=== PATIENT | female | born 1980 ===

== ENCOUNTER 2017-11-12 21:03 | Emergency (ER) | payer SELFPAY ==
[2017-11-12 21:14] VITALS: BP 127/80; PULSE 64; RESP 19; TEMP 98.3; O2SAT 98
--- NOTE | 2017-11-12 21:34 | ED PDOC ---
HPI: Female Pain Time Seen by Provider: 11/12/17 21:15 Chief Complaint (Nursing): Female Genitourinary Chief Complaint (Provider): Female Genitourinary History Per: Patient, [employer] ([employer]) History/Exam Limitations: no limitations Onset/Duration Of Symptoms: Days (x3 weeks) Current Symptoms Are (Timing): Still Present Additional Complaint(s): 37 year old female presents to the ED for evaluation of dysuria. Patient states that three weeks ago, she was diagnosed with a UTI, and prescribed macrobid for one week, which she finished and provided good relief of the dysuria. The following week however, symptoms returned, so she took an over the counter medication which resolved her symptoms after three days. Today, however, her dysuria returned worse than previously. Otherwise, denies back pain, abdominal pain, nausea, vomiting, fever, and hematuria PMD: none provided Past Medical History Reviewed: Historical Data, Nursing Documentation, Vital Signs Vital Signs: Last Vital Signs Temp 98.3 F 11/12/17 21:07 Pulse 64 11/12/17 21:07 Resp 19 11/12/17 21:07 BP 127/80 11/12/17 21:07 Pulse Ox 98 11/12/17 21:07 - Medical History PMH: No Chronic Diseases - Surgical History Surgical History: No Surg Hx - Family History Family History: States: Unknown Family Hx - Home Medications Home Medications: Ambulatory Orders Medication Instructions Recorded Sulfamethoxazole/Trimethoprim 1 tab PO BID #14 tab 11/12/17 [Bactrim DS 800 mg-160 mg] - Allergies Allergies/Adverse Reactions: Allergies Allergy/AdvReac Type Severity Reaction Status Date / Time No Known Allergies Allergy Verified 11/12/17 21:14 Review of Systems ROS Statement: Except As Marked, All Systems Reviewed And Found Negative Constitutional: Negative for: Fever Gastrointestinal: Negative for: Nausea, Vomiting, Abdominal Pain Genitourinary Female: Positive for: Dysuria. Negative for: Hematuria Musculoskeletal: Negative for: Back Pain Physical Exam - Reviewed Nursing Documentation Reviewed: Yes Vital Signs Reviewed: Yes - Physical Exam Appears: Positive for: No Acute Distress Gastrointestinal/Abdominal: Positive for: Normal Exam, Soft. Negative for: Tenderness Back: Positive for: Normal Inspection. Negative for: L CVA Tenderness, R CVA Tenderness Neurologic/Psych: Positive for: Alert, Oriented (x3) - Laboratory Results Urine POC: Negative Urine dip results: Positive for: Ketones (mirta), Protein (trace). 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 informed of udip results. Further reports that she took Pyridium 2 days ago as well with temporary resolution of symptoms until today. Abx will be started due to symptoms and possibility of contaminated urine specimen due to recent pyridum and abx use. Informed of plan and agrees with care. Scribe Attestation: Documented by Aster Starr, acting as a scribe for Alhaji Pope PA-C. Provider Scribe Attestation: All medical record entries made by the Scribe were at my direction and personally dictated by me. I have reviewed the chart and agree that the record accurately reflects my personal performance of the history, physical exam, medical decision making, and the department course for this patient. I have also personally directed, reviewed, and agree with the discharge instructions and disposition. Disposition - Clinical Impression Clinical Impression: Urinary tract infection - Patient ED Disposition Is Patient to be Admitted: No - Disposition Referrals: [facility] [Outside] [facility] [Outside] Disposition: Routine/Home Disposition Time: 22:16 Condition: STABLE Additional Instructions: NOEL WOLF, thank you for letting us take care of you today. Your provider was Tessie Vázquez MD and you were treated for DIFFICULTY URINATING. The emergency medical care you received today was directed at your acute symptoms. If you were prescribed any medication, please fill it and take as directed. It may take several days for your symptoms to resolve. Return to the Emergency Department if your symptoms worsen, do not improve, or if you have any other problems. Please contact your doctor or call one of the physicians/clinics you have been referred to that are listed on the Patient Visit Information form that is included in your discharge packet. Bring any paperwork you were given at discharge with you along with any medications you are taking to your follow up visit. Our treatment cannot replace ongoing medical care by a primary care provider outside of the emergency department. Thank you for allowing the [facility] team to be part of your care today. If you had an X-Ray or CT scan: A Radiologist will review the ED reading if any change in treatment is needed we will contact you. If you had a blood, urine, or wound culture: It will take several days for the results, if any change in treatment is needed we will contact you. If you had an STI test: It will take 48 hours for the results. Please call after 1 week if you have not heard back. Prescriptions: Sulfamethoxazole/Trimethoprim [Bactrim DS 800 mg-160 mg] 1 tab PO BID #14 tab Instructions: Urinary Tract Infection, Adult (DC) Forms: Trot (Ukrainian) Print Language: [email or web address]
== END 2017-11-12 23:13 | disposition home or self-care (01) ==
LOC: H.ER 21:03
DX: N39.0 Urinary tract infection, site not specified (principal)